=== PATIENT | male | born 1950 | race Caucasian/White ===

== ENCOUNTER 2017-10-19 15:15 | Emergency (ER) | payer OTHER ==
[~2017-10-19] VITALS: Ht 177.8 cm; Wt 96.0 kg
[~2017-10-19 15:15] MED LIST: ASPI1TAB69 PO; CHOL10008 PO; DOXA1TAB35 PO; LOSA100T PO; METO50TA PO; VITA250T3 PO; VITA250T5 PO
[2017-10-19 15:37] VITALS: BP 221/86; PULSE 77; RESP 19; TEMP 98.8; O2SAT 97
[2017-10-19] MEDS ORDERED: ASPI-516 CHEW (16:50)
--- NOTE | 2017-10-19 17:11 | PD ---
HPI Chief Complaint: [employer] Problem Time Seen by Provider: 16:49 Travel History International Travel<30 days: No Contact w/Intl Traveler<30days: No Traveled to known affect area: No History of Present Illness HPI 67-year-old male complains of blockage from the Payne cath. Patient has history of prostate cancer status post prostatectomy. Patient had indwelling Payne cath placement several days ago. Patient states that the Payne cath stopped draining since this morning. Patient denies other problem. Patient denies any fever chills. Patient denies any back pain. PFSH Past Medical History Cancer: No Cardiovascular Problems: Yes (IRREG. RHYTHM) Diabetes: No Endocrine: No Genitourinary: No Hepatitis: No Hiatal Hernia: No Hypertension: Yes Immune Disorder: No Musculoskeletal: Yes (ARTHRITIS) Neurologic: No Psychiatric: No Respiratory: No Thyroid Disease: No Past Surgical History AICD: No Joint Replacement: Yes (RIGHT KNEE) Oral Surgery: Yes (TONSILLECTOMY) Pacemaker: No Tonsillectomy: Yes Social History Alcohol Use: Yes (2 GLASSES WINE PER DAY) Tobacco Use: No Substance Use: No Allergies-Medications (Allergen,Severity, Reaction): Coded Allergies: No Known Allergies (Verified Adverse Reaction, Unknown, 10/19/17) Reported Meds & Prescriptions Reported Meds & Active Scripts Active Reported Aspirin 81 Mg Chew 81 Mg CHEW ONCE Metoprolol Tartrate 50 Mg Tab 50 Mg PO DAILY Losartan (Losartan Potassium) 100 Mg Tab 100 Mg PO DAILY Review of Systems General / Constitutional: No: Fever Eyes: No: Visual changes HENT: No: Headaches Cardiovascular: No: Chest Pain or Discomfort Respiratory: No: Shortness of Breath Gastrointestinal: No: Abdominal Pain Genitourinary: No: Dysuria Musculoskeletal: No: Pain Skin: No Rash Neurologic: No: Weakness Psychiatric: No: Depression Endocrine: No: Polydipsia Hematologic/Lymphatic: No: Easy Bruising Physical Exam Narrative GENERAL: Well-nourished, well-developed patient. SKIN: Focused skin assessment warm/dry. HEAD: Normocephalic. EYES: No scleral icterus. No injection or drainage. NECK: Supple, trachea midline. No JVD or lymphadenopathy. CARDIOVASCULAR: Regular rate and rhythm without murmurs, gallops, or rubs. RESPIRATORY: Breath sounds equal bilaterally. No accessory muscle use. GASTROINTESTINAL: Abdomen soft, non-tender, nondistended. MUSCULOSKELETAL: No cyanosis, or edema. BACK: Nontender without obvious deformity. No CVA tenderness. exam: Payne cath in place. Not draining. Data Data Last Documented VS Vital Signs Date Time Temp Pulse Resp B/P (MAP) Pulse Ox O2 Delivery O2 Flow Rate FiO2 10/19/17 15:37 98.8 77 19 221/86 (131) 97 Orders Orders Ed Discharge Order (10/19/17 17:07) MDM Medical Decision Making Medical Screen Exam Complete: Yes Emergency Medical Condition: Yes Differential Diagnosis Differential diagnosis including blocked Payne cath. Narrative Course 67-year-old male with blocked Payne cath. Patient has history of prostate cancer status post prostatectomy and Payne cath placement. Payne cath was irrigated. Draining well. Patient will be discharged. Diagnosis Primary Impression: Encounter for Payne catheter fitting and adjustment Patient Instructions: General Instructions Additional Instructions: Follow-up with personal physician. Return as needed. Med/Other Pt SpecificInfo: No Change to Meds Disposition: 01 DISCHARGE HOME Condition: Stable Juni Castelan MD Oct 19, 2017 17:11
[2017-10-19 17:23] VITALS: BP_SYST 139; BP_SYST 165; BP_DIAS 75; BP_DIAS 85; PULSE 77; RESP 16; TEMP 98.1; O2SAT 99
[2017-10-19 17:30] VITALS: BP 164/80; TEMP 98.1
== END 2017-10-19 17:35 | disposition home or self-care (01) ==
LOC: NEPC 15:15
DX: T83.9XXA Unspecified complication of genitourinary prosthetic device, implant and graft, initial encounter (principal); I10 Essential (primary) hypertension; M19.90 Unspecified osteoarthritis, unspecified site; Z79.82 Long term (current) use of aspirin; Z85.46 Personal history of malignant neoplasm of prostate; Z79.899 Other long term (current) drug therapy
CPT/HCPCS: 99282

== ENCOUNTER 2017-10-20 16:56 | Emergency (ER) | payer OTHER ==
[~2017-10-20] VITALS: Ht 177.8 cm; Wt 95.9 kg
[~2017-10-20 16:56] MED LIST changes: +ASPI-516 CHEW; -ASPI1TAB69 PO; -CHOL10008 PO; -DOXA1TAB35 PO; -VITA250T3 PO; -VITA250T5 PO
[2017-10-20 16:59] VITALS: BP 237/116; PULSE 78; RESP 18; TEMP 98; O2SAT 97
--- NOTE | 2017-10-20 18:36 | PD ---
HPI Chief Complaint: Complaint Time Seen by Provider: 18:29 Travel History International Travel<30 days: No Contact w/Intl Traveler<30days: No Traveled to known affect area: No History of Present Illness HPI 67-year-old male presents to the emergency department with concern that his Payne catheter is blocked since this afternoon. He was here yesterday for the same complaint. He has history of prostate cancer and had prostatectomy on October [address] Burns. Reports feeling pressure in his bladder. Denies fevers , vomiting, low back pain. Denies pain at all. Reports pressure in his bladder only. He is also complaining of swelling of his penis; he said there is a "blister appearing "area to the tip of his penis. Symptoms are mild to moderate in severity. Has not taken any medications or try any treatments to alleviate his symptoms. No known aggravating or relieving factors. Primary care provider is Dr. Mahmood. Prostate specialist is Dr. Burns. He has an appointment with Dr. Burns tomorrow morning at 9:45 AM. No known allergies. History of hypertension. Blood pressure is elevated in the ER. Patient states his blood pressure is always elevated in the presence of doctors, doctor's visits, hospitals, etc. He has compliant with his medication and took his medication this morning. His next doses tonight prior to bedtime. He denies chest pain, shortness of breath, abdominal pain, nausea, vomiting, headaches, change in vision, diaphoresis, feeling faint. He has no other medical complaints. No other modifying factors or associated signs and symptoms. PFSH Past Medical History Cancer: No Cardiovascular Problems: Yes (IRREG. RHYTHM) Diabetes: No Endocrine: No Genitourinary: No Hepatitis: No Hiatal Hernia: No Hypertension: Yes Immune Disorder: No Musculoskeletal: Yes (ARTHRITIS) Neurologic: No Psychiatric: No Respiratory: No Thyroid Disease: No Past Surgical History AICD: No Joint Replacement: Yes (RIGHT KNEE) Oral Surgery: Yes (TONSILLECTOMY) Pacemaker: No Tonsillectomy: Yes Other Surgery: Yes Social History Alcohol Use: Yes (2 GLASSES WINE PER DAY) Tobacco Use: No Substance Use: No Allergies-Medications (Allergen,Severity, Reaction): Coded Allergies: No Known Allergies (Verified Adverse Reaction, Unknown, 10/19/17) Reported Meds & Prescriptions Reported Meds & Active Scripts Active Reported Aspirin 81 Mg Chew 81 Mg CHEW ONCE Metoprolol Tartrate 50 Mg Tab 50 Mg PO DAILY Losartan (Losartan Potassium) 100 Mg Tab 100 Mg PO DAILY Review of Systems Except as stated in HPI: all other systems reviewed are Neg Physical Exam Narrative GENERAL: Well-nourished, well-developed male patient, in no acute distress SKIN: Warm and dry. HEAD: Atraumatic. Normocephalic. EYES: Pupils equal and round. ENT: Mucosa pink and moist. NECK: Trachea midline. No lymphadenopathy. CARDIOVASCULAR: Regular rate. RESPIRATORY: No accessory muscle use. GASTROINTESTINAL: Abdomen soft and nondisteneded, nontender. Bladder with tenderness on palpation, and is nondistended. Hepatic and splenic margins not palpable. Bowel sounds are active 4 quadrants. GENITOURINARY: Exam done in the presence of a nurse. Payne catheter in place; clear yellow urine noted in the Payne bag. UnCircumcised. Penis appears normal in appearance without edema, lesions, drainage. I do not see any blister type lesions. The urethra appears normal and is nonedematous, nonerythematous and without drainage noted. No urethral discharge. MUSCULOSKELETAL: No obvious deformities. No clubbing. No cyanosis. No edema. BACK: No CVA tenderness. NEUROLOGICAL: Awake and alert. Oriented 3. No obvious cranial nerve deficits. Motor grossly within normal limits. Normal speech. Moves all extremities. 5/5 strength to all extremities. PSYCHIATRIC: Appropriate mood and affect; insight and judgment normal. Data Data Last Documented VS Vital Signs Date Time Temp Pulse Resp B/P (MAP) Pulse Ox O2 Delivery O2 Flow Rate FiO2 10/20/17 19:39 10/20/17 16:59 98.0 78 18 97 Orders Orders Ed Discharge Order (10/20/17 18:50) [facility] Medical Decision Making Medical Screen Exam Complete: Yes Emergency Medical Condition: Yes Medical Record Reviewed: Yes Differential Diagnosis Payne catheter blockage, Payne catheter problem, medical clearance Narrative Course 67-year-old male post prostatectomy on October [address] with [address] in [address] and is concerned it is blocked. The Payne catheter was flushed and there is good return of fluid into the Payne catheter bag. Patient has follow-up appointment with his head of ict at 9:45 AM tomorrow morning. The Payne catheter is draining at this time. Instructed patient to follow-up at his appointment as scheduled. Instructed patient to follow up with primary care provider. Patient verbalizes understanding and agreement with treatment plan. Patient is medically cleared and stable for discharge. Discussed reasons to return to the emergency department. Patient agrees with treatment plan. The patients vital signs are stable and the patient is stable for outpatient follow- up and treatment. Patient discharged home, stable and in no acute distress. Diagnosis Primary Impression: Payne catheter problem Qualified Codes: T83.9XXD - Unspecified complication of genitourinary prosthetic device, implant and graft, subsequent encounter Referrals: [facility] Primary Care Physician Patient Instructions: Payne Catheter Placement and Care (ED), General Instructions Additional Instructions: Keep Payne bag below the knee to promote drainage Empty urine bag frequently to monitor urine output Maintain good personal hygiene Follow-up with primary care provider Followup with Dr. Burns at your scheduled appointment tomorrow morning Return to the emergency department immediately with worsening of symptoms Med/Other Pt SpecificInfo: No Change to Meds, No Meds Exist/No RX given Disposition: DISCHARGE HOME Condition: Stable Jessica Keita Oct 20, 2017 18:36
[2017-10-20 19:19] VITALS: BP 221/109
== END 2017-10-20 19:40 | disposition home or self-care (01) ==
LOC: NEPD 16:56
DX: T83.9XXA Unspecified complication of genitourinary prosthetic device, implant and graft, initial encounter (principal); I10 Essential (primary) hypertension; Z85.46 Personal history of malignant neoplasm of prostate
CPT/HCPCS: 99282